=== PATIENT | male | born 1965 | race Hispanic/Latino ===

== ENCOUNTER 2017-01-13 07:04 | Day surgery (SDC) | payer MEDICARE ==
[2017-01-13] MEDS ORDERED: ECOTRIN PO ONE (07:29)
[2017-01-13] MEDS ORDERED: NACL 0.9% 500 ML 500 ML IV SCH (08:00)
[2017-01-13 08:05] LABS: Hematocrit 41.9 % (35.5-45.6); Hemoglobin 14.8 gm/dl (11.8-15.2); Mean Corpuscular HGB Conc 35 % (32-34); Mean Corpuscular Hemoglobin 37 pg (28-32); Mean Corpuscular Volume 106 fl (84-94); Platelet Count 158 K/mm3 (140-440); Red Blood Count 3.96 M/mm3 (3.65-5.03); Red Cell Distribution Width 14.6 % (13.2-15.2); White Blood Count 7.8 K/mm3 (4.5-11.0)
[2017-01-13 08:12] LABS: Anion Gap 20 mmol/L; Blood Urea Nitrogen 14 mg/dL (9-20); Carbon Dioxide 23 mmol/L (22-30); Chloride 98.7 mmol/L (98-107); Glucose 122 mg/dL (75-100); Potassium 4.4 mmol/L (3.6-5.0); Sodium 137 mmol/L (137-145)
[2017-01-13] MEDS ORDERED: SUBLIMAZE ONE (10:35)
[2017-01-13] MEDS ORDERED: HEPARIN/NS 5000 UNIT/500ML(CATH LAB) 1,000 ML IR ONE (10:35)
[2017-01-13] MEDS ORDERED: NITROGLYCERIN SYRINGE 3 ML ONE (10:36)
[2017-01-13] MEDS ORDERED: HEPARIN 10,000 UNITS/10 ML ONE (10:36)
[2017-01-13] MEDS ORDERED: CALAN ONE (10:36)
[2017-01-13] MEDS ORDERED: XYLOCAINE 2% INFILTRATI ONE (10:36)
[2017-01-13] MEDS: VERSED ONE ×2 (10:38→10:42)
--- NOTE | 2017-01-13 11:46 | Short Stay Summary ---
Short Stay Documentation Date of service: 01/13/17 - History H&P: obtained from office - Allergies and Medications Current Medications: Allergies Sulfa (Sulfonamide Antibiotics) Allergy (Intermediate, Verified 01/13/17 09:02) Anaphylaxis ciprofloxacin Allergy (Verified 01/13/17 09:02) Anaphylaxis codeine Allergy (Uncoded 01/13/17 09:02) Anaphylaxis shrimp Allergy (Uncoded 01/13/17 07:22) Anaphylaxis Home Medications Medication Instructions Recorded Confirmed Last Taken Type ALBUTEROL Inhaler [VENTOLIN 2 puff INHALATION QID PRN 01/13/17 01/13/17 History Inhaler] Benzonatate [Tessalon Perles] 100 mg PO TID PRN 01/13/17 01/13/17 Unknown History Brexpiprazole [Rexulti] 4 mg PO DAILY 01/13/17 01/13/17 01/12/17 History 4mg Bupropion HCl [Wellbutrin Xl] 150 mg PO DAILY 01/13/17 01/13/17 01/12/17 History Carvedilol [Carvedilol] 3.125 mg PO DAILY 01/13/17 01/13/17 01/12/17 History Epzicom TAB 1 cap PO DAILY 01/13/17 01/13/17 01/12/17 History Eszopiclone [Lunesta] 3 mg PO QHS 01/13/17 01/13/17 01/12/17 History Etravirine [Intelence] 200 mg PO BID 01/13/17 01/13/17 01/12/17 History Etravirine [Intelence] 200 mg PO BID 01/13/17 01/13/17 01/12/17 History Prednisone [Prednisone] 50 mg PO DAILY 01/13/17 01/13/17 01/12/17 History lamoTRIgine [Lamotrigine] 200 mg PO DAILY 01/13/17 01/13/17 01/12/17 History traZODone [Desyrel] 400 mg PO QHS 01/13/17 01/13/17 01/12/17 History 400mg Active Medications Sodium Chloride (Nacl 0.9% 500 Ml) 500 mls @ 50 mls/hr IV DIRECT TUYET Stop: 01/13/17 17:59 Last Admin: 01/13/17 08:05 Dose: 50 mls/hr - Brief post op/procedure progress note Date of procedure: 01/13/17 Pre-op diagnosis: dyspnea, abnormal stress test Procedure: left heart cath - Hospital course Hospital course: Please see dictated cath report. - Disposition Condition at discharge: Stable Disposition: DC/TX ANOTHER TYPE HEALTHCARE - Discharge Diagnoses (1) Dyspnea Status: Acute Qualifiers: Dyspnea type: D (2) Abnormal stress test Status: Acute (3) CAD (coronary artery disease) Status: Chronic Qualifiers: Coronary Disease-Associated Artery/Lesion type: C [place] vs. transplanted heart: N Associated angina: A
--- NOTE | 2017-01-13 13:03 | Cardiac Catherization Report ---
REFERRING PHYSICIAN: Al Sun MD INDICATION FOR PROCEDURE: The patient is a pleasant 51-year-old gentleman with some shortness of breath and markedly abnormal stress test in the office with a large densely fixed anterior defect, referred for left heart catheterization. Risks, benefits, and potential alternatives explained at length prior to obtaining informed consent. PROCEDURE IN DETAIL: The patient was brought to catheterization lab in a postabsorptive state. He does have a shellfish allergy, appropriately premedicated. Jose's test in right hand was normal. He was prepped and draped in sterile fashion. A 2 mL of 2% lidocaine used to anesthetize the right wrist. A standard 6-[place] hydrophilic sheath used to cannulate the right common femoral artery via modified Seldinger technique. All exchanges performed to exchange a J-tip guidewire. JL3.5 catheter was used to engage the left main. No dampening or ventricularization. Cineangiography performed in all projections. JR4 catheter used to cross the aortic valve under fluoroscopic guidance. Left ventriculography performed in 30 LUCIO and 30 CESILIA projections via hand injections, catheter flushed. Manual pullback performed with continuous pressure monitoring. Catheter used to engage the right coronary. No dampening or ventricularization. Cineangiography performed in all projections. Next, catheter removed from the body of wire, sheath removed. Manual pressure used to achieve hemostasis. DATA: Aortic pressure is 100/60, LV pressure is 100, LVEDP of 12 mmHg. Left ventriculography revealed anterior dyskinesis with estimated ejection fraction of 45-50%. No evidence of aortic stenosis. Normal LVEDP. CORONARY ANATOMY: This is a left dominant system. Right coronary is small, nondominant. The left main is without significant disease, bifurcates into left anterior descending and left circumflex. Left circumflex is a large vessel, courses AV groove, left PDA. The LAD is a moderate sized vessel. It has a subtotal chronic occlusion ostialy. GELA 1 flow. There are extensive left circumflex to LAD collaterals. CONCLUSIONS: 1. Chronic subtotal occlusion of the ostial LAD with GELA 1 flow with well organized left to left collaterals in this left dominant system. 2. No significant disease noted left circumflex the right coronary. 4. Left ventriculography reveals anteroapical dyskinesis with estimated ejection fraction of 45-50%. No evidence of aortic stenosis. Normal LVEDP. At this point, I have discussed the options with him. We will proceed with a PET viability of the scan. If there is in fact viability of the anterior wall, the patient will undergo robotic JIMENEZ to LAD. Discussed with Dr. Alec Fontaine. The patient will be transferred to [facility]. He is clinically entirely stable. My findings and plan of care discussed at length with the patient and his mother. All questions and concerns were addressed . JOB# [id number] GODFREY/JANESSA
[2017-01-13 13:35] VITALS: BP 105/69
== END 2017-01-13 15:20 | disposition other institution (70) ==
LOC: OPU 07:04
PROVIDERS: ATTEND Internal Medicine
DX: I25.10 Atherosclerotic heart disease of native coronary artery without angina pectoris (principal); I25.82 Chronic total occlusion of coronary artery; Z82.3 Family history of stroke; Z82.62 Family history of osteoporosis
CPT/HCPCS: 36415; 80048; 85025; 85610; 85730; 93005; 93010; 93458; C1894; J1644; J2250; J3010; J7040; Q9967